=== PATIENT | female | born 1990 | race Caucasian/White ===

== ENCOUNTER 2018-10-20 09:20 | Emergency (ER) | payer MEDICAID ==
--- NOTE | 2018-10-20 09:29 | EDPHY ---
HPI/HX/ROS/PE/MDM Narrative: CLINICAL IMPRESSION: Difficulty sleeping, intermittent abdominal pain ASSESSMENT/PLAN: Patient is a 28-year-old female with no significant medical history who presents to the emergency department with complaints of difficulty sleeping and intermittent and ongoing abdominal pain for the last 3-4 months. Patient is afebrile, she is in no acute distress and not toxic appearing. Her abdomen was soft with mild tenderness to palpation in the epigastrium and left upper quadrant, no peritoneal signs or evidence of a surgical abdomen. CBC revealed no evidence of leukocytosis or shift. Her vital signs were reviewed and there was no evidence of sepsis or serious bacterial illness. BMP revealed no significant metabolic abnormality. Lipase and hepatic panel were grossly unremarkable without evidence of acute hepatitis, acute pancreatitis or acute hepatobiliary obstruction. negative, Monospot negative. Patient with a very reassuring abdominal exam and laboratory study workup today in the emergency department. It is unclear exactly what is causing her ongoing and intermittent abdominal pain as well as intermittent insomnia at this time. Query stress or possible GERD as contributory. With a reassuring abdominal exam and normal laboratory studies we did not feel that CT examination was indicated at this time. There were no clinical findings to suggest acute appendicitis, cholecystitis, kidney stone, pancreatitis, ACS, pyelonephritis, perforated viscus, diverticulitis, hernia, AAA, mesenteric ischemia, or additional emergent intra-abdominal process. negative, rules out ectopic . No pelvic complaints to suggest TOA, PID or ovarian torsion. She was given IV fluids, Zofran and Pepcid with improvement of her symptoms. On repeat examination the patient is well-appearing and in no acute distress. Her abdomen remained soft with very mild tenderness to palpation in the epigastrium and left upper quadrant, no peritoneal signs or evidence of a surgical abdomen. The patient does not have a primary care provider, she was given a referral and understands the importance of establishing care for repeat examination. I would like the patient to continue omeprazole, she was provided a prescription for this. Conservative return precautions were discussed- patient is to return to the emergency department should she develop fever, persistent nausea and vomiting, worsening or localizing abdominal pain or for any other concerning symptom. Patient verbalizes understanding and she is in agreement with this plan. Case, plan of care and results discussed with Dr. Mckeon, he also evaluated this patient. DIFFERENTIAL DX: Abdominal pain including but not limited to appendicitis, cholecystitis, gastritis and urinary tract infection. ED COURSE: 9:45 am: Case discussed with Dr. Mckeon CHIEF COMPLAINT: Abdominal pain, insomnia HPI: Patient is a 28-year-old female with a history of intermittent insomnia who presents to the emergency department with ongoing insomnia as well as intermittent and ongoing abdominal pain for the past 3-4 months. Patient reports several months prior she was having a lot of difficulty sleeping, she was seen and evaluated and prescribed temazepam however did not like the way this made her feel. Her sleeping did improve however over the last several weeks it has been worsening, she has only been getting several hours of sleep at night. Patient also reports over the last 3-4 months she has been experiencing intermittent abdominal pain that is most prominent in her epigastrium and left upper quadrant, described as sharp in nature. Patient reports occasionally she will have some dull radiation to her right upper and mid abdomen. There are no exacerbating factors, the pain does not improve with anything. She does experience some occasional nausea and decreased appetite. Endorses approximately 2 weeks ago had some associated vomiting, emesis x1 last night. Denies hematemesis. She is sexually active with 1 partner, she is not concern for sexually transmitted infections. She denies any vaginal bleeding, pelvic pain, vaginal discharge or vaginal pain. Last menstrual period was regular and 3 weeks prior. The patient denies any fevers, chills, chest pain or shortness of breath. She reports a remote upper respiratory infection over a week ago which has improved. She has had no associated urinary symptoms to include dysuria, hematuria or increased frequency. Bowel movements have been normal and regular, no history of constipation. Denies melena or hematochezia. She states she is most concerned that she might have a gastric ulcer as her brother has 1 as well. She has not trialed any antacids. She also discloses that there is a mole on her neck that she is concerned regarding the appearance of. Denies any redness or drainage. PMH: Insomnia Pertinent Past Surgical History: Denies Family History: Noncontributory Social History: Occasional EtOH, occasional marijuana, denies cigarette smoking REVIEW OF SYSTEMS: All other systems negative Constitutional: No fever, no chills. Eyes: No discharge, vision change ENT: No sore throat, congestion, ear pain. Cardiovascular: No chest pain, no palpitations. Respiratory: No cough, no shortness of breath. Gastrointestinal: Abdominal pain, nausea, vomiting. No diarrhea. Genitourinary: No hematuria, dysuria, flank pain, pelvic pain Musculoskeletal: No back pain, joint swelling, joint pain, myalgias. Skin: No rashes, color change. Neurological: No headache, dizziness, weakness. PHYSICAL EXAM: General Appearance: Alert, oriented, appropriate, cooperative, NAD, well hydrated, non-toxic appearing, VSS, no hypoxia. HENT: Normocephalic, atraumatic. Bilateral external ears are normal. Bilateral tympanic membranes are normal with pearly selby reflex. Nares are clear, mucosa is pink. Oropharynx is clear, uvula is midline. There is no tonsillar enlargement or exudate. The dentition is normal. Eyes: PERRLA, no acute vision change, nystagmus, swelling, discharge, pain or photosensitivity. Conjunctiva pink, no pallor or injection Neck: Supple, nontender, no lymphadenopathy, no midline pain, FROM, no meningismus. Respiratory: There are no retractions, lungs are clear to auscultation. Cardiac: Regular rate and rhythm, no murmurs or gallops. Gastrointestinal: Patient's abdomen is soft and nondistended. Bowel sounds are present. Patient with very mild tenderness to deep palpation in the epigastrium and left upper quadrant; nontender in the lower abdomen. Negative Angelo sign, negative McBurney's point tenderness and negative Rovsing's. There is no rigidity and there are no peritoneal signs. Neurological: Alert and oriented x 3, CN 2-12 grossly intact, normal gait no ataxia, DTR's intact, normal sensation and strength Skin: Small, circular light brown nevus right anterior neck. No surrounding erythema, induration, scabbing or drainage. Warm, dry, no rashes, no nodules on palpation. Musculoskeletal: Extremities are symmetrical, full range of motion, no tenderness, deformity, swelling, or erythema. Psychiatric: Patient is oriented X 3, there is no agitation. MEDICAL DECISION MAKING: Patient was seen independently. Secondary supervising physician at time of evaluation was Dr. Mckeon. Diagnosis: Difficulty sleeping, abdominal pain. New, requires workup Summary: See Assessment and Plan for summary of ED visit Clinical lab tests: ordered / reviewed. Independent visualization of images, tracing, or specimens: Yes. Decision to obtain medical records or history from someone other than the patient: No Review / Summarize previous medical records: Not applicable Discussed patient with another provider: Dr. Mckeon Patient Progress: Stable, discharged home. (Leslie Mina) MDM: I also saw the patient at 10:45 a.m. While she was in the emergency department. I reviewed the history of 2 months of intermittent abdominal pain in the upper abdomen. Difficulty sleeping at night. Exam shows well-developed female mild distress. Mild tenderness in the left upper quadrant. Vital signs are reviewed. Labs are reviewed. I agree with treatment plan and management ( Marco Mckeon) - Data Points Laboratory Results: Laboratory Results 10/20/18 09:50 10/20/18 09:50 10/20/18 10/20/18 10/20/18 09:50 09:50 09:50 WBC RBC Hgb Hct MCV MCH MCHC RDW Plt Count MPV Neut % (Auto) Lymph % (Auto) [place] % (Auto) Eos % (Auto) Baso % (Auto) Nucleat RBC Rel Count Absolute Neuts (auto) Absolute Lymphs (auto) Absolute Monos (auto) Absolute Eos (auto) Absolute Basos (auto) Absolute Nucleated RBC Immature Gran % Immature Gran # Sodium 139 mEq/L mEq/L (135-145) Potassium 3.8 mEq/L mEq/L (3.5-5.2) Chloride 104 mEq/L mEq/L (97-110) Carbon Dioxide 28 mEq/l mEq/l (22-31) Anion Gap 7 mEq/L mEq/L (6-14) BUN 10 mg/dL mg/dL (7-23) Creatinine 0.8 mg/dL mg/dL (0.6-1.0) Estimated GFR > 60 Glucose 57 mg/dL L mg/dL (70-100) Calcium 9.8 mg/dL mg/dL (8.5-10.4) Total Bilirubin 0.4 mg/dL mg/dL (0.1-1.4) Conjugated Bilirubin 0.2 mg/dL mg/dL (0.0-0.5) Unconjugated Bilirubin 0.2 mg/dL mg/dL (0.0-1.1) AST 25 IU/L IU/L (14-46) ALT 31 IU/L IU/L (9-52) Alkaline Phosphatase 57 IU/L IU/L (38-126) Total Protein 7.4 g/dL g/dL (6.3-8.2) Albumin 4.4 g/dL g/dL (3.5-5.0) Lipase 110 IU/L IU/L (23-300) Beta HCG, Qual Monoscreen NEGATIVE (NEGATIVE) 10/20/18 10/20/18 09:50 09:43 WBC 3.62 10^3/uL L 10^3/uL (3.80-9.50) RBC 4.74 10^6/uL 10^6/uL (4.18-5.33) Hgb 14.7 g/dL g/dL (12.6-16.3) Hct 43.1 % % (38.0-47.0) MCV 90.9 fL fL (81.5-99.8) MCH 31.0 pg pg (27.9-34.1) MCHC 34.1 g/dL g/dL (32.4-36.7) RDW 12.0 % % (11.5-15.2) Plt Count 208 10^3/uL 10^3/uL (150-400) MPV 10.0 fL fL (8.7-11.7) Neut % (Auto) 47.0 % % (39.3-74.2) Lymph % (Auto) 37.0 % % (15.0-45.0) [place] % (Auto) 10.2 % % (4.5-13.0) Eos % (Auto) 4.1 % % (0.6-7.6) Baso % (Auto) 1.7 % % (0.3-1.7) Nucleat RBC Rel Count 0.0 % % (0.0-0.2) Absolute Neuts (auto) 1.70 10^3/uL 10^3/uL (1.70-6.50) Absolute Lymphs (auto) 1.34 10^3/uL 10^3/uL (1.00-3.00) Absolute Monos (auto) 0.37 10^3/uL 10^3/uL (0.30-0.80) Absolute Eos (auto) 0.15 10^3/uL 10^3/uL (0.03-0.40) Absolute Basos (auto) 0.06 10^3/uL 10^3/uL (0.02-0.10) Absolute Nucleated RBC 0.00 10^3/uL 10^3/uL (0-0.01) Immature Gran % 0.0 % % (0.0-1.1) Immature Gran # 0.00 10^3/uL 10^3/uL (0.00-0.10) Sodium Potassium Chloride Carbon Dioxide Anion Gap BUN Creatinine Estimated GFR Glucose Calcium Total Bilirubin Conjugated Bilirubin Unconjugated Bilirubin AST ALT Alkaline Phosphatase Total Protein Albumin Lipase Beta HCG, Qual NEGATIVE Monoscreen Medications Given: Ondansetron HCl (Zofran) 4 mg IVP Q4 PRN PRN Reason: Nausea/Vomiting, Can't Take PO Stop: 04/18/19 09:42 Last Admin: 10/20/18 10:01 Dose: 4 mg Discontinued Medications Famotidine 20 mg/ Sodium (Chloride) 102 mls @ 408 mls/hr IV EDNOW ONE Stop: 10/20/18 09:57 Last Admin: 10/20/18 09:59 Dose: 102 mls Sodium Chloride (Ns) 1,000 mls @ 0 mls/hr IV ONCE ONE PRN Reason: Wide Open Stop: 10/20/18 09:44 Last Admin: 10/20/18 09:58 Dose: 1,000 mls General Initial Vital Signs: Initial Vital Signs Temperature (C) 36.6 C 10/20/18 09:23 Heart Rate 83 10/20/18 09:23 Respiratory Rate 18 10/20/18 09:23 Blood Pressure 110/77 10/20/18 09:23 O2 Sat (%) 95 10/20/18 09:23 O2 Delivery Mode Room Air Allergies/Adverse Reactions: No Known Allergies Allergy (Unverified 10/20/18 09:22) Home Medications: Medication Instructions Recorded Omeprazole 20 mg PO DAILY #30 tablet. 10/20/18 Departure - Departure Disposition: Home, Routine, Self-Care Clinical Impression: Difficulty sleeping Abdominal pain Qualifiers: Abdominal location: unspecified location Qualified Code(s): R10.9 - Unspecified abdominal pain Condition: Good Instructions: Omeprazole (By mouth), Acute Abdominal Pain (ED), Insomnia (ED) Additional Instructions: DISCHARGE INSTRUCTIONS FROM YOUR DOCTOR Thank you for visiting our emergency department today. Please keep in mind that discharge from the emergency department does not mean that there is nothing wrong - it simply means that we have not identified an emergency condition that requires further evaluation or treatment in the hospital. You should always plan to follow up with primary care for re-evaluation of your condition in the next 2-3 days. If you have been referred to a specialist, please call as soon as possible (today or tomorrow) to schedule your follow up appointment at the appropriate time. Rest, push non-diuretic, non-caffeinated fluids, clear liquid diet, then a BRAT diet (bananas, rice, applesauce, toast), then slowly advance diet to normal. Attempt small frequent meals. Trial omeprazole and acid daily, you were given a prescription for this. Schedule a follow-up appointment with your primary care physician in the next 1- 2 days for re-evaluation. Bring a copy of your test results with you to that appointment. Return for increased or unmanageable pain, new site or character of pain, flank pain, groin pain, pelvic pain, development of fever, chills, recurrent vomiting , vomiting blood or coffee grounds, diarrhea, constipation, bloody stools, black tarry stools, burning or pain with urination, bloody urine, inability to urinate, decreased urine output or other signs of dehydration, dizziness, weakness, fainting, difficulty breathing or swallowing, chest pain, or for any other new, worsening or worrisome symptoms. People present with illnesses and injuries in different ways, and it is always possible that we have missed something. You may always return for re-evaluation if symptoms worsen or if they are not improving or if you develop new/different symptoms. Again, thank you for choosing our emergency department. We hope that you feel better. Referrals: Andreea Montanez MD [Medical Doctor] - 2-3 days, call for appt. Prescriptions: Omeprazole 20 mg PO DAILY #30 tablet.
[2018-10-20] MEDS ORDERED: FAMOTIDINE 20 MG in NS 100 ML IV ONE (09:43)
[2018-10-20] MEDS ORDERED: ONDANSETRON 4 MG/2 ML VIAL IVP PRN (09:43)
[2018-10-20] MEDS ORDERED: NS 1,000 ML IV ONE (09:43)
[2018-10-20 10:12] LABS: PLATELET COUNT 208 10^3/uL (150-400)
[2018-10-20 12:08] VITALS: BP 100/70
== END 2018-10-20 12:07 | disposition home or self-care (01) ==
DX: R10.9 Unspecified abdominal pain (principal); G47.00 Insomnia, unspecified
CPT/HCPCS: 96374; J2405